=== PATIENT | male | born 1950 | race Caucasian/White ===

== ENCOUNTER → 2016-10-17 | Outpatient (CLI) | payer OTHER ==
[~2016-10-17] VITALS: Ht 160 cm; Wt 31.0 kg
[~2016-10-17] MED LIST: ESCI1TAB10 PO; HYDR-5688 PO; LISI-725 PO; TADA10TA PO; TRAZ50TA35 PO
[2016-10-17 13:29] VITALS: BP 115/73; PULSE 102; PULSE 130; Ht 160 cm; Wt 31.0 kg
[2016-10-17 13:30] VITALS: BP 109/67; PULSE 128
== END | disposition home or self-care (01) ==
LOC: C.NEUR 13:14
PROVIDERS: ATTEND Internal Medicine Pulmonary Disease
DX: G47.30 Sleep apnea, unspecified (principal)